=== PATIENT | male | born 1965 | race Caucasian/White ===

== ENCOUNTER 2021-01-01 23:01 | Emergency (ER) | payer OTHER ==
[~2021-01-01] VITALS: Ht 167.6 cm; Wt 97.1 kg
[2021-01-01] MEDS ORDERED: COZAAR25 MG PO (23:17)
[2021-01-02] MEDS ORDERED: ZITHROMAX500 MG PO (04:02)
[2021-01-02] MEDS ORDERED: ZYNCOF 20-400120 ML PO (04:02)
== END 2021-01-02 04:27 ==
LOC: ER 23:01
DX: B34.9 Viral infection, unspecified (principal); R50.9 Fever, unspecified; Z03.818 Encounter for observation for suspected exposure to other biological agents ruled out

== ENCOUNTER 2023-02-06 00:22 | Emergency (ER) | payer OTHER ==
[~2023-02-06] VITALS: Ht 160 cm; Wt 93.0 kg
[~2023-02-06 00:22] MED LIST: COZAAR25 MG PO; ZITHROMAX500 MG PO; ZYNCOF 20-400120 ML PO
[2023-02-06] MEDS ORDERED: DICLOFENAC POTA50 M1 PO (03:57)
[2023-02-06] MEDS ORDERED: NORFLEX100MG PO (03:57)
== END 2023-02-06 04:18 | disposition home or self-care (01) ==
LOC: ER 00:22
DX: S00.93XA Contusion of unspecified part of head, initial encounter (principal); W10.8XXA Fall (on) (from) other stairs and steps, initial encounter; Y93.89 Activity, other specified; Y92.018 Other place in single-family (private) house as the place of occurrence of the external cause; Y99.8 Other external cause status; I10 Essential (primary) hypertension